=== PATIENT | female | born 1980 | race Caucasian/White ===

== ENCOUNTER 2020-01-05 19:07 | Emergency (ER) | payer OTHER ==
[~2020-01-05] VITALS: Ht 162.6 cm; Wt 79.0 kg
[~2020-01-05 19:07] MED LIST: IBUP-1222 PO; OXYC-302 PO; PREN1TAB28 PO
[2020-01-05] MEDS ORDERED: KETOROLAC 30 MG/1 ML ONE (19:22)
[2020-01-05] MEDS ORDERED: ONDANSETRON 2MG/ML, 2ML ONE (19:22)
[2020-01-05] MEDS ORDERED: ONDANSETRON 2MG/ML, 2ML IVPush ONE (19:30)
[2020-01-05] MEDS ORDERED: SODIUM CHLORIDE FLUSH 10ML SYR IVF ONE (19:30)
[2020-01-05] MEDS ORDERED: KETOROLAC 30 MG/1 ML IVPush ONE (19:30)
[2020-01-05] MEDS ORDERED: SODIUM CHLORIDE 0.9% 1,000 ML IV ONE (19:30)
--- NOTE | 2020-01-05 19:37 | NUR ---
PT STATES PAIN IN LEFT FLANK COMES IN WAVES. PT STATES PAIN IS CURRENTLY AT 6/10. PT ALSO IS DIAPHORETIC AND COOL. PT STATES SHE WAS DIZZY AND NAUSEOUS, BUT CURRENTLY DOES NOT FEEL THIS WAY.
[2020-01-05 19:38] LABS: BASOPHILS % (AUTO) 1 % (0-1); EOSINOPHILS % (AUTO) 3 % (1-7); LYMPHOCYTES % (AUTO) 27 % (22-44); MEAN CORPUSCULAR HEMOGLOBIN 30.7 pg (27.0-34.8); MEAN CORPUSCULAR HGB CONC 33.3 g/dL (32.4-35.8); MEAN PLATELET VOLUME 8.7 fL (7.4-10.4); MONOCYTES % (AUTO) 8 % (2-9); NEUTROPHILS % (AUTO) 62 % (42-75); PLATELET COUNT 264 x10^3/uL (130-400); RED BLOOD COUNT 4.85 x10^6/uL (3.82-5.3); RED CELL DISTRIBUTION WIDTH 12.6 % (9.6-15.2)
[2020-01-05 19:39] LABS: MD NO
[2020-01-05 19:40] LABS: ALANINE AMINOTRANSFERASE 27 U/L (12-78); ALBUMIN 3.4 g/dL (3.4-5.0); ANION GAP 8 mmol/L (5-15); CALCIUM 8.6 mg/dL (8.5-10.1); CHLORIDE 109 mmol/L (98-107); CREATININE 1.38 mg/dL (0.55-1.02)
[2020-01-05 19:45] LABS: ALKALINE PHOSPHATASE 56 U/L (45-117); BILIRUBIN,TOTAL 0.3 mg/dL (0.2-1.0); TOTAL PROTEIN 7.4 g/dL (6.4-8.2)
--- NOTE | 2020-01-05 20:30 | NUR ---
ASSISTED TO RESTROOM, URINE SPECIMEN COLLECTED AND SENT. PT REPORTS PAIN GREATLY REDUCED AT THIS TIME. DELIGHTFUL YOUNG LADY.
[2020-01-05 20:57] LABS: MICROSCOPIC INDICATED
--- NOTE | 2020-01-05 21:06 | NUR ---
PT STATES NO PAIN AT THIS TIME. PT RESTING IN GURNEY, NO OTHER COMPLAINTS AT THIS TIME.
[2020-01-05] MEDS ORDERED: CEFTRIAXONE PMX 2GM/50ML 50 ML ONE (21:29)
[2020-01-05] MEDS ORDERED: SODIUM CHLORIDE 0.9% 1,000ML IVBOLUS ONE (21:30)
[2020-01-05] MEDS ORDERED: CEFTRIAXONE PMX 2GM/50ML 50 ML IVPB ONE (21:30)
--- NOTE | 2020-01-05 21:57 | NUR ---
REPORT GIVEN TO MATT LUCIO.
[2020-01-05 22:58] VITALS: BP 138/90
== END 2020-01-05 23:06 | disposition home or self-care (01) ==
LOC: ED 19:37
DX: N30.01 Acute cystitis with hematuria (principal); N26.1 Atrophy of kidney (terminal); R10.9 Unspecified abdominal pain; R42 Dizziness and giddiness
CPT/HCPCS: 36415; 74176; 80053; 81001; 84703; 85025; 87077; 87086; 93005; 96361; 96365; 96375; 99285; J0696; J1885; J2405; J7030; 87186

== ENCOUNTER → 2020-05-27 | Outpatient (CLI) | payer OTHER ==
[~2020-05-27] MED LIST changes: -OXYC-302 PO; +OXYC1TAB14 PO
[2020-05-27 03:35] LABS: MICROSCOPIC AUTO
[2020-05-27 03:38] LABS: ALANINE AMINOTRANSFERASE 26 U/L (12-78); ALBUMIN 3.8 g/dL (3.4-5.0); ANION GAP 8 mmol/L (5-15); CALCIUM 8.7 mg/dL (8.5-10.1); CHLORIDE 102 mmol/L (98-107); CREATININE 1.41 mg/dL (0.55-1.02)
[2020-05-27 03:40] LABS: ALKALINE PHOSPHATASE 68 U/L (45-117); BILIRUBIN,TOTAL 0.2 mg/dL (0.2-1.0)
== END | disposition home or self-care (01) ==
LOC: LAB 02:50
PROVIDERS: ATTEND Internal Medicine
DX: N20.0 Calculus of kidney (principal); N26.9 Renal sclerosis, unspecified; Q60.0 Renal agenesis, unilateral
CPT/HCPCS: 80053; 81001; 82043; 82570; 84156; 87077; 87086; 87186

== ENCOUNTER → 2020-07-09 | Outpatient (CLI) | payer OTHER ==
[~2020-07-09] MED LIST changes: +FUROSEMIDE 20 MG/2 ML ONE
== END | disposition home or self-care (01) ==
LOC: RAD 10:47
PROVIDERS: ATTEND Urology
DX: N26.1 Atrophy of kidney (terminal) (principal)
CPT/HCPCS: 78708; A9562; J1940